=== PATIENT | male | born 1945 | race Asian ===

== ENCOUNTER 2016-10-02 12:59 | Inpatient (IN) | payer OTHER, MEDICAID ==
[~2016-10-02] VITALS: Ht 162.6 cm; Wt 71.8 kg
[2016-10-02 13:17] LABS: GLUCOSE,POINT OF CARE 228 MG/DL (70-110)
[2016-10-02] MEDS ORDERED: FENO160 PO (13:18)
[2016-10-02] MEDS ORDERED: OXYC-341 PO (13:18)
[2016-10-02] MEDS ORDERED: MU V PO (13:18)
[2016-10-02] MEDS ORDERED: TRAM50TA4 PO (13:18)
[2016-10-02] MEDS ORDERED: FERR-89 PO (13:18)
[2016-10-02] MEDS ORDERED: OMEP20 PO (13:18)
[2016-10-02] MEDS ORDERED: ATOR40TA28 PO (13:18)
[2016-10-02] MEDS ORDERED: ASPI-556 PO (13:18)
[2016-10-02] MEDS ORDERED: RANI150C4 PO (13:18)
[2016-10-02] MEDS ORDERED: AMLO-512 PO (13:18)
[2016-10-02] MEDS ORDERED: HYDR25TA84 PO (13:18)
[2016-10-02] MEDS ORDERED: [UNRECOGNIZED DRUG - CODE] PO (13:18)
[2016-10-02] MEDS ORDERED: FINA5TAB41 PO (13:18)
[2016-10-02] MEDS ORDERED: DOXA1 PO (13:18)
[2016-10-02] MEDS ORDERED: DULO20CA30 PO (13:18)
[2016-10-02] MEDS ORDERED: ACETAMINOPHEN 325 MG TABLET PO ONE (13:30)
[2016-10-02 13:48] LABS: BASOPHILS % (AUTO) 0.4 % (0.0-2.0); EOSINOPHILS % (AUTO) 4.8 % (1.0-6.0); HEMATOCRIT 41.4 % (41-53); HEMOGLOBIN 13.6 g/dL (13.5-17.5); LYMPHOCYTES # (AUTO) 1.6 K/uL (1.0-4.8); LYMPHOCYTES % (AUTO) 19.4 % (22.0-44.0); MEAN CORPUSCULAR HEMOGLOBIN 29.7 pg (26.0-34.0); MEAN CORPUSCULAR HGB CONC 32.9 G/dL (31.0-37.0); MEAN CORPUSCULAR VOLUME 91 fL (80-100); MONOCYTES # (AUTO) 0.4 K/uL (0.1-1.0); MONOCYTES % (AUTO) 4.6 % (2.0-9.0); NEUTROPHILS # (AUTO) 5.9 K/uL (1.8-7.7); NEUTROPHILS % (AUTO) 70.8 % (40.0-70.0); PLATELET COUNT (AUTO) 304 K/uL (150-450); RED BLOOD CELL COUNT(AUTO) 4.57 MIL/uL (4.50-5.90); RED CELL DISTRIBUTION WIDTH 12.7 % (11.5-14.5); WHITE BLOOD COUNT (AUTO) 8.4 K/uL (4.5-11.0)
[2016-10-02 13:57] LABS: ANION GAP 8 mmol/L (8-16); CALCIUM, TOTAL 8.1 mg/dL (8.8-10.5); CARBON DIOXIDE 29 mmol/L (22-29); CHLORIDE 102 mmol/L (98-107); CREATININE 1.81 mg/dL (0.60-1.30); GLOMERULAR FILTR. RATE CALC 37 mL/min (>60); POTASSIUM 4.6 mmol/L (3.5-5.1); SODIUM SERUM 139 mmol/L (136-145); UREA NITROGEN, BLOOD 23 mg/dL (7-18)
[2016-10-02 14:03] LABS: ALANINE AMINOTRANSFERASE 22 U/L (12-78); ALBUMIN 2.3 g/dL (3.4-5.0); ASPARTATE AMINOTRANSFERASE 20 U/L (15-37); BILIRUBIN,TOTAL 0.2 mg/dL (0.1-1.0); TOTAL PROTEIN, SERUM 6.4 g/dL (6.4-8.2)
[2016-10-02] MEDS ORDERED: ZOLPIDEM TARTRATE 10 MG TABLET PO PRN (14:30)
[2016-10-02] MEDS ORDERED: HALOPERIDOL 5 MG TABLET PO PRN (14:30)
[2016-10-02] MEDS ORDERED: LORazepam 2 MG TABLET PO PRN (14:30)
[2016-10-02] MEDS: DULoxetine HCL 20 MG CAPSULE PO SCH (18:23)
[2016-10-02] MEDS ORDERED: DEXTROSE 50%-WATER 25 GM/50 ML SYRINGE IVP PRN (18:30)
[2016-10-02 19:01] VITALS: BP 148/96
[2016-10-02] MEDS: INSULIN ASPART 100 UNITS/ML SQ PRN (20:24)
[2016-10-03 05:38] LABS: GLUCOSE,POINT OF CARE 226 MG/DL (70-110)
[2016-10-03] MEDS: FERROUS SULFATE 325 MG EC TABLET PO SCH ×2 (06:39→16:53)
[2016-10-03 07:08] LABS: THYROID STIMULATING HORMONE 10.74 uIU/mL (0.36-3.74)
[2016-10-03] MEDS: INSULIN ASPART 100 UNITS/ML SQ PRN ×3 (07:14→21:09)
[2016-10-03] MEDS: MULTIVITAMINS WITH MINERALS, THERAPEUTIC TABLET PO SCH (07:45)
[2016-10-03] MEDS: AmLODIPine BESYLATE 10 MG TABLET PO SCH (07:45)
[2016-10-03] MEDS: ASPIRIN 81 MG CHEWABLE TABLET PO SCH (07:46)
[2016-10-03] MEDS: RANITIDINE HCL 150 MG TABLET PO SCH ×2 (07:46→16:53)
[2016-10-03] MEDS: OMEPRAZOLE 20 MG CAPSULE PO SCH (07:46)
[2016-10-03] MEDS: HydrALAZINE HCL 25 MG TABLET PO SCH ×3 (07:46→16:53)
[2016-10-03] MEDS: FINASTERIDE 5 MG TABLET PO SCH (07:48)
[2016-10-03] MEDS: FENOFIBRATE 160 MG TABLET PO SCH (07:48)
[2016-10-03] MEDS: ATORVASTATIN CALCIUM 40 MG TABLET PO SCH (07:49)
[2016-10-03] MEDS: DOXAZOSIN MESYLATE 1 MG TABLET PO SCH (07:49)
[2016-10-03] MEDS: DULoxetine HCL 20 MG CAPSULE PO SCH ×2 (07:49→16:53)
[2016-10-03 08:05] VITALS: BP 190/110
[2016-10-03 08:19] LABS: HEMOGLOBIN A1C 12.4 % (4.5-6.2)
[2016-10-03 09:00] VITALS: BP 180/100
[2016-10-03 11:36] LABS: GLUCOSE,POINT OF CARE 357 MG/DL (70-110)
[2016-10-03 16:00] VITALS: BP 172/102
[2016-10-03] MEDS: INSULIN DETEMIR 100 UNITS/ML SQ SCH (21:08)
[2016-10-04 05:42] LABS: GLUCOSE,POINT OF CARE 204 MG/DL (70-110)
[2016-10-04] MEDS: LEVOTHYROXINE SODIUM 25 MCG TABLET PO SCH (06:52)
[2016-10-04] MEDS: FERROUS SULFATE 325 MG EC TABLET PO SCH ×2 (06:58→17:05)
[2016-10-04] MEDS: INSULIN ASPART 100 UNITS/ML SQ PRN ×3 (07:11→23:05)
[2016-10-04 08:01] VITALS: BP 166/82
[2016-10-04] MEDS: DOXAZOSIN MESYLATE 1 MG TABLET PO SCH (08:50)
[2016-10-04] MEDS: ASPIRIN 81 MG CHEWABLE TABLET PO SCH (08:50)
[2016-10-04] MEDS: HydrALAZINE HCL 25 MG TABLET PO SCH ×3 (08:50→17:04)
[2016-10-04] MEDS: ATORVASTATIN CALCIUM 40 MG TABLET PO SCH (08:51)
[2016-10-04] MEDS: OMEPRAZOLE 20 MG CAPSULE PO SCH (08:51)
[2016-10-04] MEDS: AmLODIPine BESYLATE 10 MG TABLET PO SCH (08:51)
[2016-10-04] MEDS: MULTIVITAMINS WITH MINERALS, THERAPEUTIC TABLET PO SCH (08:51)
[2016-10-04] MEDS: FENOFIBRATE 160 MG TABLET PO SCH (08:51)
[2016-10-04] MEDS: DULoxetine HCL 60 MG CAPSULE PO SCH ×2 (08:51→17:04)
[2016-10-04] MEDS: FINASTERIDE 5 MG TABLET PO SCH (08:52)
[2016-10-04] MEDS: RANITIDINE HCL 150 MG TABLET PO SCH ×2 (08:52→17:04)
[2016-10-04] MEDS ORDERED: ACETAMINOPHEN 325 MG TABLET PO PRN (12:15)
[2016-10-04 12:22] VITALS: BP 148/74
[2016-10-04] MEDS: IBUPROFEN 600 MG TABLET PO PRN (12:22)
[2016-10-04 17:42] VITALS: BP 135/86
[2016-10-04] MEDS: INSULIN DETEMIR 100 UNITS/ML SQ SCH ×2 (22:07→23:07)
[2016-10-04 22:37] LABS: GLUCOSE,POINT OF CARE 252 MG/DL (70-110)
[2016-10-05 05:12] LABS: GLUCOSE,POINT OF CARE 175 MG/DL (70-110)
[2016-10-05] MEDS: FERROUS SULFATE 325 MG EC TABLET PO SCH ×2 (06:30→16:57)
[2016-10-05] MEDS: LEVOTHYROXINE SODIUM 25 MCG TABLET PO SCH (06:30)
[2016-10-05] MEDS: INSULIN ASPART 100 UNITS/ML SQ PRN ×4 (06:35→22:21)
[2016-10-05 08:02] VITALS: BP 162/85
[2016-10-05] MEDS: DULoxetine HCL 60 MG CAPSULE PO SCH ×2 (08:19→16:57)
[2016-10-05] MEDS: ATORVASTATIN CALCIUM 40 MG TABLET PO SCH (08:19)
[2016-10-05] MEDS: HydrALAZINE HCL 25 MG TABLET PO SCH ×3 (08:19→16:57)
[2016-10-05] MEDS: ASPIRIN 81 MG CHEWABLE TABLET PO SCH (08:19)
[2016-10-05] MEDS: DOXAZOSIN MESYLATE 1 MG TABLET PO SCH (08:19)
[2016-10-05] MEDS: MULTIVITAMINS WITH MINERALS, THERAPEUTIC TABLET PO SCH (08:20)
[2016-10-05] MEDS: FINASTERIDE 5 MG TABLET PO SCH (08:20)
[2016-10-05] MEDS: FENOFIBRATE 160 MG TABLET PO SCH (08:20)
[2016-10-05] MEDS: AmLODIPine BESYLATE 10 MG TABLET PO SCH (08:20)
[2016-10-05] MEDS: OMEPRAZOLE 20 MG CAPSULE PO SCH (08:20)
[2016-10-05] MEDS: RANITIDINE HCL 150 MG TABLET PO SCH ×2 (08:20→16:57)
[2016-10-05] MEDS: IBUPROFEN 600 MG TABLET PO PRN (12:27)
[2016-10-05 12:29] VITALS: BP 147/88
[2016-10-05 20:49] VITALS: BP 135/83
[2016-10-05] MEDS: INSULIN DETEMIR 100 UNITS/ML SQ SCH (22:19)
[2016-10-06 05:26] LABS: GLUCOSE,POINT OF CARE 81 MG/DL (70-110)
[2016-10-06] MEDS: FERROUS SULFATE 325 MG EC TABLET PO SCH ×2 (07:01→17:13)
[2016-10-06] MEDS: LEVOTHYROXINE SODIUM 25 MCG TABLET PO SCH (07:01)
[2016-10-06 08:01] VITALS: BP 142/76
[2016-10-06] MEDS: AmLODIPine BESYLATE 10 MG TABLET PO SCH (08:56)
[2016-10-06] MEDS: MULTIVITAMINS WITH MINERALS, THERAPEUTIC TABLET PO SCH (08:57)
[2016-10-06] MEDS: DULoxetine HCL 60 MG CAPSULE PO SCH ×2 (08:57→16:11)
[2016-10-06] MEDS: OMEPRAZOLE 20 MG CAPSULE PO SCH (08:57)
[2016-10-06] MEDS: ASPIRIN 81 MG CHEWABLE TABLET PO SCH (08:57)
[2016-10-06] MEDS: FINASTERIDE 5 MG TABLET PO SCH (08:57)
[2016-10-06] MEDS: DOXAZOSIN MESYLATE 1 MG TABLET PO SCH (08:58)
[2016-10-06] MEDS: HydrALAZINE HCL 25 MG TABLET PO SCH ×3 (08:58→16:11)
[2016-10-06] MEDS: ATORVASTATIN CALCIUM 40 MG TABLET PO SCH (08:59)
[2016-10-06] MEDS: FENOFIBRATE 160 MG TABLET PO SCH (08:59)
[2016-10-06] MEDS: RANITIDINE HCL 150 MG TABLET PO SCH ×2 (09:00→16:11)
[2016-10-06] MEDS: IBUPROFEN 600 MG TABLET PO PRN (10:18)
[2016-10-06 11:22] VITALS: BP 131/74
[2016-10-06] MEDS: INSULIN ASPART 100 UNITS/ML SQ PRN ×3 (11:45→21:00)
[2016-10-06 17:25] VITALS: BP 98/55
[2016-10-06] MEDS: INSULIN DETEMIR 100 UNITS/ML SQ SCH (20:59)
[2016-10-07] MEDS: FERROUS SULFATE 325 MG EC TABLET PO SCH (06:57)
[2016-10-07] MEDS: LEVOTHYROXINE SODIUM 25 MCG TABLET PO SCH (06:57)
[2016-10-07] MEDS: INSULIN ASPART 100 UNITS/ML SQ PRN ×2 (07:12→11:48)
[2016-10-07 08:08] VITALS: BP 151/72
[2016-10-07] MEDS ORDERED: DULO60CA44 PO (08:48)
[2016-10-07] MEDS ORDERED: INSU100V12 SQ (08:56)
[2016-10-07] MEDS ORDERED: MULT-723 PO (08:56)
[2016-10-07] MEDS ORDERED: LEVO25TA9 PO (08:56)
[2016-10-07] MEDS: ASPIRIN 81 MG CHEWABLE TABLET PO SCH (09:13)
[2016-10-07] MEDS: HydrALAZINE HCL 25 MG TABLET PO SCH ×2 (09:13→13:10)
[2016-10-07] MEDS: DULoxetine HCL 60 MG CAPSULE PO SCH (09:14)
[2016-10-07] MEDS: ATORVASTATIN CALCIUM 40 MG TABLET PO SCH (09:14)
[2016-10-07] MEDS: FENOFIBRATE 160 MG TABLET PO SCH (09:14)
[2016-10-07] MEDS: AmLODIPine BESYLATE 10 MG TABLET PO SCH (09:14)
[2016-10-07] MEDS: DOXAZOSIN MESYLATE 1 MG TABLET PO SCH (09:14)
[2016-10-07] MEDS: RANITIDINE HCL 150 MG TABLET PO SCH (09:14)
[2016-10-07] MEDS: OMEPRAZOLE 20 MG CAPSULE PO SCH (09:14)
[2016-10-07] MEDS: MULTIVITAMINS WITH MINERALS, THERAPEUTIC TABLET PO SCH (09:15)
[2016-10-07] MEDS: FINASTERIDE 5 MG TABLET PO SCH (09:15)
[2016-10-07 11:46] LABS: GLUCOSE,POINT OF CARE 192 MG/DL (70-110)
[2016-10-07 13:09] VITALS: BP 122/67
== END 2016-10-07 14:30 | disposition home or self-care (01) | DRG 885 ==
LOC: EMS 13:01 → 3EX 16:38
PROVIDERS: ADMIT Psychiatry & Neurology Psychiatry; ATTEND Psychiatry & Neurology Psychiatry
DX: F33.2 Major depressive disorder, recurrent severe without psychotic features (principal); R45.851 Suicidal ideations; E11.65 Type 2 diabetes mellitus with hyperglycemia; I12.9 Hypertensive chronic kidney disease with stage 1 through stage 4 chronic kidney disease, or unspecified chronic kidney disease; N18.9 Chronic kidney disease, unspecified; E03.9 Hypothyroidism, unspecified; F29 Unspecified psychosis not due to a substance or known physiological condition; E11.22 Type 2 diabetes mellitus with diabetic chronic kidney disease; K21.9 Gastro-esophageal reflux disease without esophagitis; E78.00 Pure hypercholesterolemia, unspecified; E78.5 Hyperlipidemia, unspecified; N40.0 Benign prostatic hyperplasia without lower urinary tract symptoms; Z79.82 Long term (current) use of aspirin; Z79.899 Other long term (current) drug therapy; Z90.49 Acquired absence of other specified parts of digestive tract; Z83.3 Family history of diabetes mellitus; Z91.5 Personal history of self-harm; Z81.8 Family history of other mental and behavioral disorders
CPT/HCPCS: 82962; 83036; 84439; 84443; 99285; G0480